=== PATIENT | male | born 1985 | race Caucasian/White ===

== ENCOUNTER 2019-09-30 14:09 | Emergency (ER) | payer OTHER ==
[2019-09-30 15:33] LABS: RAPID GROUP A STREP NEGATIVE (NEGATIVE)
[2019-09-30] MEDS ORDERED: CEFTRIAXONE SODIUM 1 GM ONE (15:40)
[2019-09-30] MEDS ORDERED: LIDOCAINE HCL-MPF 1% 2ML VIAL ONE (15:40)
[2019-09-30] MEDS ORDERED: DEXAMETHASONE SOD PHOSPHATE 10MG/ML 1ML VIAL ONE (15:40)
== END 2019-09-30 15:57 | disposition home or self-care (01) ==
LOC: EDH 14:09
DX: J02.9 Acute pharyngitis, unspecified (principal)
CPT/HCPCS: 71046; 87804 ×2; 87880; 96372 ×2; 99285; J0696; J1100; J3490

== ENCOUNTER 2020-01-10 17:14 | Emergency (ER) | payer OTHER ==
[2020-01-10] MEDS ORDERED: DEXAMETHASONE SOD PHOSPHATE 10MG/ML 1ML VIAL ONE (17:44)
[2020-01-10] MEDS ORDERED: LIDOCAINE 5% TOPICAL PATCH TP ONE (17:44)
[2020-01-10] MEDS ORDERED: KETOROLAC TROMETHAMINE 30MG/ML ONE (17:44)
== END 2020-01-10 18:03 | disposition home or self-care (01) ==
LOC: EDH 17:14
DX: M54.5 Low back pain (principal); Z88.8 Allergy status to other drugs, medicaments and biological substances
CPT/HCPCS: 96372 ×2; 99284; J1100; J1885

== ENCOUNTER 2020-06-18 07:49 | Emergency (ER) | payer OTHER ==
[2020-06-18] MEDS ORDERED: IBUPROFEN 200 MG TAB ONE (08:14)
== END 2020-06-18 08:20 | disposition home or self-care (01) ==
LOC: EDH 07:49
DX: H60.92 Unspecified otitis externa, left ear (principal); H66.92 Otitis media, unspecified, left ear; Z88.8 Allergy status to other drugs, medicaments and biological substances